=== PATIENT | male | born 1975 | race Hispanic/Latino ===

== ENCOUNTER 2025-02-04 22:40 | Emergency (ER) | payer SELFPAY ==
[~2025-02-04] VITALS: Ht 172.7 cm; Wt 124.3 kg
[~2025-02-04 22:40] MED LIST: IOHEXOL-350 75 ML VIAL IV ONE
[2025-02-04 23:31] LABS: BASOPHILS # (AUTO) 0.08 K/uL (0.00-0.20); BASOPHILS % (AUTO) 0.8 % (0.0-5.0); EOSINOPHILS # (AUTO) 0.26 K/uL (0.00-0.70); EOSINOPHILS % (AUTO) 2.5 % (0.0-8.0); HEMATOCRIT 53.3 % (42-54); IMMATURE GRANULOCYTE ABSOLUTE 0.07 K/uL (0-1); LYMPHOCYTES # (AUTO) 3.2 K/uL (1.0-4.8); LYMPHOCYTES % (AUTO) 30.9 % (21.0-51.0); MEAN CORPUSCULAR HEMOGLOBIN 30.6 pg (27.0-33.0); MEAN CORPUSCULAR HGB CONC 33.6 g/dL (32.0-36.0); MEAN CORPUSCULAR VOLUME 91.1 fL (79-99); MONOCYTES % (AUTO) 9.2 % (3.0-13.0); NEUTROPHILS # (AUTO) 5.8 K/uL (1.8-7.7); NEUTROPHILS % (AUTO) 55.9 % (40.0-77.0); PLATELET COUNT (AUTO) 196 K/uL (130-400); RED BLOOD CELL COUNT(AUTO) 5.85 MIL/uL (4.50-6.20); RED CELL DISTRIBUTION WIDTH 13.6 % (11.0-15.5); WHITE BLOOD COUNT (AUTO) 10.4 K/uL (4.8-10.8)
--- NOTE | 2025-02-04 23:40 | NUR ---
PATIENT PLACED IN ER ROOM 10 AT THIS TIME. ASSUMED CARE AT THIS TIME.
[2025-02-04] MEDS: ondanSETRON 4MG INJ IVP STA (23:44)
[2025-02-04 23:45] VITALS: TEMP 98.2
[2025-02-04] MEDS: hydrALAZine 20MG/ML VIAL IV ONE (23:45)
[2025-02-04] MEDS: morPHINE 2 MG SYG IVP STA (23:45)
[2025-02-04 23:50] LABS: CARBON DIOXIDE 30 mmol/L (21-32); CHLORIDE 103 mmol/L (101-111); CREATININE 1.2 mg/dL (0.5-1.3); GLOMERULAR FILTR. RATE CALC 75 mL/min (>90); GLUCOSE,RANDOM 104 mg/dL (70-105); POTASSIUM 3.7 mmol/L (3.5-5.1); SODIUM SERUM 137 mmol/L (136-145); UREA NITROGEN, BLOOD 11 mg/dL (7-18)
--- NOTE | 2025-02-04 23:54 | ERN ---
ED Note History of Present Illness Stated Complaint: C/O RT UPPER BACK PAIN, PAIN UPON INSPIRATION Chief Complaint: Back Pain-No Injury Time Seen by MD: 23:09 Time Seen by Midlevel: 23:11 Dictation: 49-year-old male with a history of hypertension coming in complaining of right mid back pain radiating to the right scapular area. Patient states pain started on Sunday. Denies any trauma. Patient states pain is worse when he takes a deep breath in states makes him feel short of breath. 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 Allergies: Coded Allergies: Penicillins (Unverified Allergy, Unknown, 02/04/25) Home Meds Active Scripts Ketorolac Tromethamine (Ketorolac Tromethamine) 10 Mg Tablet, 1 TAB PO Q6HPRN PRN for pain for 5 Days, #20 TAB 0 Refills Prov:COLT RAM MAGNETIC TAPE WINDER 02/05/25 Past Medical History Past Medical History: High Cholesterol, Hypertension, Other Additional Past Medical Hx: HX OF "FAST PULSE" Surgical History: None Review of System Dictation Constitutional: Negative for fever,chills, and weight loss Eyes: Negative for injury, pain,redness, and discharge ENT: Negative for injury,pain or swelling Cardiovascular: Negative for chest pain, palpitations, and edema Respiratory: Negative for shortness of breath, cough, and wheezing, Abdomen/GI: Negative for abdominal pain, nausea, vomiting, diarrhea, and c onstipation Back: Negative for injury and pain : Negative for injury, bleeding and discharge MS/Extremity: Patient is complaining of mid back pain radiating to the right scapular area Skin: Negative for rash, and discoloration Neuro: Negative for headache, weakness, numbness, tingling, and seizure Psych: Negative for suicide ideation, homicidal ideation, and hallucinations Review of Systems: was completed Initial Vital Sign VS Vital Signs Date Time Temp Pulse Resp B/P (MAP) Pulse Ox O2 Delivery O2 Flow Rate FiO2 02/04/25 22:42 99.0 115 20 195/141 97 Room Air 02/04/25 23:45 0 21 Physical Exam Dictation General: awake, alert, NAD Head/Face: Normocephalic, atraumatic Eyes: PERRL, EOMI, vision at baseline ENT: oral cavity clear, TMs clear, no signs of infection Neck: Trachea midline, supple, no nuchal rigidity Cardiovascular: RRR, normal S1/S2, No MRGs, no JVD Respiratory: CTAB, no respiratory distress, No rales or wheezes Abdomen: Soft, non-tender, non-distended, normal bowel sounds, no guarding or rebound. Skin: Warm, dry, normal turgor, no rash MS/Extremity: Pulses equal, no cyanosis, neurovascular intact, FROM Neuro: COAx4, GCS 15, strength 5/5, CN 2-12 intact, normal cerebellar exam, normal gait, Psych: Normal behavior, mood, and affect normal Results (Laboratory/Radiology) Laboratory/Radiology Laboratory Tests Test 02/04/25 23:25 02/04/25 23:28 02/05/25 00:47 White Blood Count 10.4 K/uL (4.8-10.8) Red Blood Count 5.85 MIL/uL (4.50-6.20) Hemoglobin 17.9 g/dL (14.0-18.0) Hematocrit 53.3 % (42-54) Mean Corpuscular Volume 91.1 fL (79-99) Mean Corpuscular Hemoglobin 30.6 pg (27.0-33.0) Mean Corpuscular Hemoglobin Concent 33.6 g/dL (32.0-36.0) Red Cell Distribution Width 13.6 % (11.0-15.5) Platelet Count 196 K/uL (130-400) Mean Platelet Volume 9.8 fL (7.5-10.5) Immature Granulocyte % (Auto) 0.7 % (0-1) Neutrophils (%) (Auto) 55.9 % (40.0-77.0) Lymphocytes (%) (Auto) 30.9 % (21.0-51.0) Monocytes (%) (Auto) 9.2 % (3.0-13.0) Eosinophils (%) (Auto) 2.5 % (0.0-8.0) Basophils (%) (Auto) 0.8 % (0.0-5.0) Neutrophils # (Auto) 5.8 K/uL (1.8-7.7) Lymphocytes # (Auto) 3.2 K/uL (1.0-4.8) Monocytes # (Auto) 1.0 K/uL (0.1-1.0) Eosinophils # (Auto) 0.26 K/uL (0.00-0.70) Basophils # (Auto) 0.08 K/uL (0.00-0.20) Absolute Immature Granulocyte (auto 0.07 K/uL (0-1) Nucleated Red Blood Cells 0.0 % (0.0-0.19) Sodium Level 137 mmol/L (136-145) Potassium Level 3.7 mmol/L (3.5-5.1) Chloride Level 103 mmol/L (101-111) Carbon Dioxide Level 30 mmol/L (21-32) Blood Urea Nitrogen 11 mg/dL (7-18) Creatinine 1.2 mg/dL (0.5-1.3) Glomerular Filtration Rate Calc 75 mL/min (>90) Random Glucose 104 mg/dL (70-105) Total Calcium 9.0 mg/dL (8.5-10.1) Total Creatine Kinase 118 U/L (21-232) Troponin I High Sensitivity 9.3 ng/L (4-75) 6 ng/L (4-75) Serum Alcohol < 3 mg/dL (0-10) B-Type Natriuretic Peptide < 5 pg/mL (0-100) Labs Reviewed?: Yes EKG Comment: EKGs done at 10:48 p.m., sinus tachycardia at a rate of 112. No STEMI interpreted by ER MD CT Scan Comment: [place] [address] IMAGING REPORT Signed PATIENT: GUNNER DE JESUS MR#: [id number] : 1975 SEX: M AGE: 49 LOCATION: ED ORDER 22 STATUS: REG ER REPORT#: [id number] SERVICE 20 REASON: SEVERE CHEST AND BACK PAIN ORDERING PHYSICIAN: COLT RAM NP PROCEDURE: CTA CHEAAA - CT ANGIO CHEST/THORAX AAA CT ANGIO CHEST/THORAX AAA HISTORY: Chest pain and back pain COMPARISON: None TECHNIQUE: CT angiography of the chest was performed. The study was performed using angiographic technique with maximum intensity projection reconstruction images. Patient was given 75 cc of Omnipaque through intravenous route. FINDINGS: No CT evidence of filling defect is seen to suggest pulmonary embolus. No CT evidence of aortic dissection is seen. No evidence of aortic aneurysm is seen. Minimal left lower lung pulmonary infiltrates are seen. No CT evidence of pleural effusion or pericardial effusion is seen. The heart is enlarged. No evidence of adrenal mass is seen. Degenerative changes of the spine are noted. IMPRESSION: 1. No CT evidence of acute pulmonary embolus or aortic dissection is seen. Minimal left lower lung pulmonary infiltrates are seen. CT was performed with one or more following dose reduction techniques: automated exposure control, adjustment of the mA and kv according to patient's size, or use of a iterative reconstruction technique. DICTATED BY: HOLLEY ANDRES MD DATE: 02/05/2531 ELECTRONICALLY SIGNED BY: HOLLEY ANDRES MD DATE: 02/05/2536 Close ED Course ED Course Orders Procedure Category Date Status Time 12 Lead Ekg Tracing- EKG 02/04/25 Logged Technical 22:55 Alcohol, Blood LAB 02/04/25 Complete 23:11 Cardiac Panel LAB 02/04/25 Complete 23:11 Cbc With Differential LAB 02/04/25 Complete 23:11 Basic Metabolic Panel LAB 02/04/25 Complete 23:11 Urinalysis Profile LAB 02/04/25 Logged 23:11 Drug Screen Urine LAB 02/04/25 Logged 23:11 Hydralazine 20mg Inj PHA 02/04/25 Complete (Apresoline 20mg In 23:30 Ct Angio Chest/Thorax CT 02/04/25 Resulted AAA 23:21 Morphine 2mg Syg PHA 02/04/25 Complete (Morphine 2mg Syg) 23:21 Ondansetron 4mg Inj PHA 02/04/25 Complete (Zofran 4mg Inj) 23:21 B-Type Natriuretic LAB 02/05/25 Complete Peptide 00:00 Iohexol (Omnipaque) PHA 02/05/25 Complete 00:02 Ketorolac PHA 02/05/25 Complete Tromethamine 15mg/Ml 00:40 Troponin I High LAB 02/05/25 Complete Sensitivity 00:41 Dexamethasone 4mg/Ml PHA 02/05/25 Complete 1ml Vial (Dexametha 01:35 Current Medications Medications (Trade) Dose Ordered Sig/Kait Route PRN Reason Start Time Stop Time Status Last Admin Dose Admin Dexamethasone Sodium Phosphate (dexaMETHasone 4MG/ML 1ML VIAL) 6 mg ONCE STAT IVP 02/05/25 01:35 02/05/25 01:36 DC 02/05/25 01:46 Hydralazine HCl (APRESOLine 20MG INJ) 15 mg ONCE ONCE IV 02/04/25 23:30 02/04/25 23:31 DC 02/04/25 23:45 Iohexol (Omnipaque) 75 ml STK-MED ONCE IV 02/05/25 00:02 02/05/25 00:03 DC Ketorolac Tromethamine (toRADol) 15 mg ONCE STAT IV 02/05/25 00:40 02/05/25 00:42 DC 02/05/25 00:49 Morphine Sulfate (morPHINE 2MG SYG) 2 mg ONCE STAT IVP 02/04/25 23:21 02/04/25 23:24 DC 02/04/25 23:45 Ondansetron HCl (zoFRAN 4MG INJ) 4 mg ONCE STAT IVP 02/04/25 23:21 02/04/25 23:24 DC 02/04/25 23:44 Vital Signs Date Time Temp Pulse Resp B/P (MAP) Pulse Ox O2 Delivery O2 Flow Rate FiO2 02/04/25 23:54 111 20 140/94 97 Room Air* 0 21 02/04/25 23:45 98.2 114 18 192/116 97 Room Air* 0 21 02/04/25 22:42 99.0 115 20 195/141 97 Room Air Medical Decision Making MDM MDM: 49-year-old male with a history of hypertension coming in complaining of right mid back pain radiating to the right scapular area. Patient states pain started on Sunday. Denies any trauma. Patient states pain is worse when he takes a deep breath in states makes him feel short of breath. 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 Chemistry unremarkable. Troponin x2 negative. CT scan of the chest shows no acute pulmonary embolism and no aortic dissection. After pain medication anti-inflammatories and started patient is a feels much better. Discussed with the patient and he is to follow up with PCP for further evaluation and turned to the hospital symptoms worsen. ER MD assessed patient agrees with the patient to be discharged and follow up outpatient. Differential diagnosis:aaa, ACS, PE, pleurisy, costochondritis Rationale: Tests considered and ordered secondary to shared decision making include: Previous outside records reviewed: Old ER visits. Risk of complication and/or morbidity or mortality of patient management: None Medications-Per medication reconciliation Need for hospitalization: Patient does not meet criteria for hospitalization. Need for emergency major/minor surgery: No There are no social concerns with this patient. Prescription drug management Prescriptions will include symptomatic care Patient's prior external medical records from other ER visits were reviewed by me as indicated. Prior testing and results from previous visits were reviewed. Prior tests were taken into account with medical decision making and resource utilization, independent historian/historians were used to obtain complete me dical history. I independently interpreted the test that were performed, results were reviewed by me and considered findings on radiology if ordered. Medical management and examination interpretation discussions were had by me with other qualified healthcare professionals as indicated for the patient's care. DX & DISP Disposition: Discharge Departure Impression: Primary Impression: Pleurisy Condition: Stable Scripts Losartan Potassium (Losartan Potassium) 50 Mg Tablet 1 TAB PO DAILY for 30 Days, #30 TAB 0 Refills Prov: COLT RAM MAGNETIC TAPE WINDER 02/05/25 Ketorolac Tromethamine (Ketorolac Tromethamine) 10 Mg Tablet 1 TAB PO Q6HPRN PRN for pain for 5 Days, #20 TAB 0 Refills Prov: COLT RAM NP 02/05/25 Additional Instructions: Follow up with PCP in 1-2 days. Take medication as prescribed. Return to the hospital if it worsening symptoms. Referrals: TUSHAR ROSALES (PCP) Time of Disposition: 01:39 I have reviewed the case, and I agree with, Diagnosis and Plan I PERFORMED A SUBSTANTIVE PORTION OF THE VISIT. I HAVE REVIEWED AND PERSONALLY MADE AND APPROVE THE MANAGEMENT PLAN THAT IS DOCUMENTED IN THE NOTE BY MYSELF OR THE AP P. I ACKNOWLEDGE FULL RESPONSIBILITY FOR THE PATIENT'S MANAGEMENT PLAN. COLT RAM NP Feb 04, 2025 23:54
[2025-02-04 23:57] LABS: ALCOHOL, BLOOD < 3 mg/dL (0-10); CREATINE KINASE, TOTAL 118 U/L (21-232)
[2025-02-05] MEDS ORDERED: IOHEXOL-350 75 ML VIAL IV ONE (00:02)
--- NOTE | 2025-02-05 00:37 | HMCIMG ---
CT ANGIO CHEST/THORAX AAA HISTORY: Chest pain and back pain COMPARISON: None TECHNIQUE: CT angiography of the chest was performed. The study was performed using angiographic technique with maximum intensity projection reconstruction images. Patient was given 75 cc of Omnipaque through intravenous route. FINDINGS: No CT evidence of filling defect is seen to suggest pulmonary embolus. No CT evidence of aortic dissection is seen. No evidence of aortic aneurysm is seen. Minimal left lower lung pulmonary infiltrates are seen. No CT evidence of pleural effusion or pericardial effusion is seen. The heart is enlarged. No evidence of adrenal mass is seen. Degenerative changes of the spine are noted. IMPRESSION: 1. No CT evidence of acute pulmonary embolus or aortic dissection is seen. Minimal left lower lung pulmonary infiltrates are seen. CT was performed with one or more following dose reduction techniques: automated exposure control, adjustment of the mA and kv according to patient's size, or use of a iterative reconstruction technique.
[2025-02-05] MEDS: ketOROlac 15MG/ML VIAL (15MG/ML) IV STA (00:49)
[2025-02-05] MEDS ORDERED: KETO10TA2 PO (01:39)
[2025-02-05] MEDS: dexaMETHasone SOD PHOSPHATE 4 MG/ML 1ML VIAL IVP STA (01:46)
[2025-02-05 01:54] VITALS: BP 142/92; PULSE 94; RESP 18; O2SAT 98
[2025-02-05] MEDS ORDERED: LOSA50TA64 PO (01:54)
--- NOTE | 2025-02-05 13:01 | EKG ---
[facility] Test Date: 2025-02-04 Test Time: 22:48:36 Pat Name: GUNNER DE JESUS Department: [facility] Room: Gender: M Seam Hammerer: [id number] : 1975 Requested By: ANASTACIA STARR Order Number: [id number] Reading MD: Herbert Armendariz Measurements Intervals [place] Rate: 112 P: 43 WI: 148 QRS: 55 QRSD: 87 T: 14 QT: 322 QTc: 440 Interpretive Statements Sinus tachycardia No previous ECG available for comparison Electronically Signed On 02-05-2025 20:53:06 CDT by Herbert Armendariz Please click the below link to view image of tracing.
== END 2025-02-05 01:59 | disposition home or self-care (01) ==
LOC: EDH 22:40
DX: R09.1 Pleurisy (principal); E78.00 Pure hypercholesterolemia, unspecified; I10 Essential (primary) hypertension; Z79.899 Other long term (current) drug therapy; Z88.0 Allergy status to penicillin
CPT/HCPCS: 99285; 96374; 71275; 96375 ×2; 82550; 84484 ×2; 80048; 83880; 85025; 36415; 93005; J2270; J0360; J2405; Q9967; J1100; J1885